=== PATIENT | female | born 1990 | race Caucasian/White ===

== ENCOUNTER 2018-12-04 06:02 | Emergency (ER) | payer OTHER ==
[~2018-12-04] VITALS: Ht 170.2 cm; Wt 81.6 kg
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
--- NOTE | 2018-12-04 06:10 | NUR ---
ADAL MCWILLIAMS AT BEDSIDE.
[2018-12-04] MEDS ORDERED: AMMONIA NASAL INHALATION 1 EA PACK NAS ONE ×2 (06:14→06:30)
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
--- NOTE | 2018-12-04 06:20 | NUR ---
PT VERBALLY RESPONSIVE WITH STAFF. NAD NOTED.
[2018-12-04] MEDS ORDERED: LEVETIRACETAM (500MG) 1,000 MG in IV NS 0.9% 100 ML IV STA (06:23)
[2018-12-04] MEDS ORDERED: LEVETIRACETAM (500MG) 500 MG/5 ML VIAL IV ONE ×2 (06:26)
--- NOTE | 2018-12-04 06:30 | NUR ---
PT UNABLE TO GIVE URINE, ER MD AWARE.
[2018-12-04 06:38] LABS: BASOPHILS # (AUTO) 0.1 /CMM (0.0-0.2); BASOPHILS % (AUTO) 0.8 % (0.0-2.0); EOSINOPHILS % (AUTO) 2.5 % (0.0-6.0); HEMATOCRIT 44 % (33-45); HEMOGLOBIN 14.5 g/dL (11.5-14.8); LYMPHOCYTES # (AUTO) 2.3 /CMM (0.8-4.8); MEAN CORPUSCULAR HGB CONC 33 g/dl (31.0-36.0); MEAN CORPUSCULAR VOLUME 82 fL (82-100); MONOCYTES # (AUTO) 0.6 /CMM (0.1-1.30); MONOCYTES % (AUTO) 7.6 % (2.0-12.0); NEUTROPHILS # (AUTO) 4.5 /CMM (1.8-8.9); NEUTROPHILS % (AUTO) 59.1 % (43.0-81.0); PLATELET COUNT (AUTO) 284 /CMM (150-450); RED BLOOD CELL COUNT(AUTO) 5.31 MIL/uL (4.0-5.2); WHITE BLOOD COUNT (AUTO) 7.6 K/uL (4.3-11.0)
[2018-12-04 06:49] LABS: ACETAMINOPHEN 0 ug/ml (10-30); ALANINE AMINOTRANSFERASE 26 U/L (12-78); ALBUMIN 3.4 g/dL (3.4-5.0); ALCOHOL, BLOOD < 3 mg/dL (0-0); ALKALINE PHOSPHATASE 83 U/L (46-116); ASPARTATE AMINOTRANSFERASE 16 U/L (15-37); BILIRUBIN,DIRECT 0.1 mg/dL (0.0-0.2); BILIRUBIN,TOTAL 0.4 mg/dL (0.2-1.0); CALCIUM, SERUM 8.6 mg/dL (8.5-10.1); CARBON DIOXIDE 26 mmol/L (21-32); CHLORIDE 106 mmol/L (98-107); CREATININE 0.8 mg/dL (0.6-1.3); GLUCOSE 132 mg/dL (74-106); POTASSIUM 4.1 mmol/L (3.5-5.1); SALICYLATE 1.2 mg/dL (2.8-20.0); SODIUM SERUM 140 mmol/L (136-145); TOTAL PROTEIN, SERUM 7.9 g/dL (6.4-8.2); UREA NITROGEN, BLOOD 14 mg/dL (7-18)
[2018-12-04] MEDS ORDERED: LEVETIRACETAM (250 MG) 250 MG TABLET PO ONE ×2 (06:56→07:00)
--- NOTE | 2018-12-04 07:05 | NUR ---
PT TAKEN TO CT.
--- NOTE | 2018-12-04 07:10 | NUR ---
REPORT GIVEN TO ABHINAV GUSMAN FOR DANIEL.
--- NOTE | 2018-12-04 07:26 | NUR ---
PT BROUGHT BACK FROM CT SCAN NON VERBAL WHILE TAKING VITAL SIGNS VSS. [employer] AT BEDSIDE. WILL CONTINUE TO MONITOR
[2018-12-04] MEDS ORDERED: ONDANSETRON 4 MG TAB.RAPDIS ONE (08:15)
[2018-12-04 08:24] VITALS: BP 138/87
--- NOTE | 2018-12-04 08:25 | NUR ---
[facility] TO [facility] GIVEN [id number] PO AND PRESCRIPTIONS WITH [facility]
[2018-12-04] MEDS ORDERED: ONDANSETRON 4 MG TAB.RAPDIS PO ONE (08:30)
== END 2018-12-04 08:26 ==
LOC: ER 06:05
DX: R56.9 Unspecified convulsions (principal); Z88.8 Allergy status to other drugs, medicaments and biological substances
CPT/HCPCS: 36415; 70450; 80048; 80076; 80307; 80329; 84702; 85025; 99284; A4606; G0480; J7030 ×2; Q0162; J1953